=== PATIENT | female | born 1985 | race Caucasian/White ===

== ENCOUNTER 2017-06-13 14:35 | Emergency (ER) | payer OTHER ==
[2017-06-13 14:56] VITALS: BP 126/74
--- NOTE | 2017-06-13 15:48 | UC ---
Abdominal Pain Female HPI - HPI Summary HPI Summary: Pt presents with RLQ pain X 1-2 days. Pt reports that she has a history of PCOS , hypothyroidism, constipation and ovarian cysts. - History of Current Complaint Chief Complaint: UCAbdominalPain Stated Complaint: LOWER ABDOMINAL/PELVIC PAIN Time Seen by Provider: 06/13/17 15:30 Hx Obtained From: Patient Hx Last Menstrual Period: "Haven't had period in over 1 year". Has OBGYN consult planned. ?: No Onset/Duration: Gradual Onset, Lasting Days - 2, Still Present Timing: Intermittent Episodes Lasting: Severity Initially: Mild Severity Currently: Mild Location: Discrete At: RLQ Radiates: No Character: Cramping, Dull, Sharp Aggravating Factor(s): Nothing Alleviating Factor(s): Nothing Associated Signs and Symptoms: Positive: Negative Simlar Episode/Dx as:: ovarian cyst, constipation - Risk Factors Ectopic Risk Factor: Negative Ovarian Torsion Risk Factor: Ovarian Cysts/Tumors Allergies/Adverse Reactions: Allergies Allergy/AdvReac Type Severity Reaction Status Date / Time No Known Allergies Allergy Verified 06/13/17 14:44 Home Medications: Home Medications Acetaminophen TAB* [Tylenol TAB*] 1,000 mg BID PRN 06/13/17 [History Confirmed 06/13/17] PMH/Surg Hx/FS Hx/Imm Hx Previously Healthy: Yes - Surgical History Surgical History: Yes Surgery Procedure, Year, and Place: Cholecystectomy, ~2009, [facility]. Back surgery~ Nov - Family History Known Family History: Positive: Hypertension - Social History Occupation: Employed Full-time Lives: With Family Alcohol Use: Rare Substance Use Type: None Smoking Status (MU): Never Smoked Tobacco Have You Smoked in the Last Year: No - Immunization History Most Recent Influenza Vaccination: NONE 2015 Most Recent Tetanus Shot: UTD Most Recent Pneumonia Vaccination: N/A Review of Systems Constitutional: Negative Skin: Negative Eyes: Negative ENT: Negative Respiratory: Negative Cardiovascular: Negative Gastrointestinal: Abdominal Pain, Other - constipation Genitourinary: Negative Motor: Negative Neurovascular: Negative Musculoskeletal: Negative Neurological: Negative Psychological: Negative All Other Systems Reviewed And Are Negative: Yes Physical Exam Triage Information Reviewed: Yes Appearance: Well-Appearing Vital Signs: Initial Vital Signs Temp 98 F 06/13/17 14:46 Pulse 87 06/13/17 14:46 Resp 16 06/13/17 14:46 BP 126/74 06/13/17 14:46 Pulse Ox 100 06/13/17 14:46 Vital Signs Reviewed: Yes Eye Exam: Normal ENT Exam: Normal Neck exam: Normal Respiratory Exam: Normal Cardiovascular Exam: Normal Abdomen Description: Positive: Other: - generalized tenderness, RLQ Musculoskeletal Exam: Normal Neurological Exam: Normal Psychological Exam: Normal Skin Exam: Normal Abd Pain Female Course/Dx - Course Course Of Treatment: I discussed with the pt the s/sx of appendicitis, ovarian cyst and recommended the use of a stool softener to help manage her chronic constipation. Pt verbalized agreement and and agreed to plan of care - Differential Dx/Diagnosis Differential Diagnosis: Appendicitis, Constipation, Ovarian Cyst Provider Diagnoses: Abdominal pain. Appendicitis-? Constipation-? ovarian cyst-? Discharge - Discharge Plan Condition: Stable Disposition: HOME Patient Education Materials: Acute Abdominal Pain (ED) Referrals: Avery Rosas DC [Primary Care Provider] - If Needed
== END 2017-06-13 15:55 | disposition home or self-care (01) ==
LOC: UCCORT 14:35
DX: R10.31 Right lower quadrant pain (principal)
CPT/HCPCS: 81003; 84702; 99211; G0463

== ENCOUNTER 2017-10-04 18:49 | Emergency (ER) | payer OTHER ==
[2017-10-04 20:33] VITALS: BP 127/75
--- NOTE | 2017-10-04 20:34 | UC ---
Upper Extremity HPI - HPI Summary HPI Summary: 31 year old female presents with right elbow pain/swelling - History of Current Complaint Chief Complaint: UCUpperExtremity Stated Complaint: RT ELBOW Time Seen by Provider: 10/04/17 20:34 Hx Obtained From: Patient Hx Last Menstrual Period: irreg Onset/Duration: Sudden Onset Severity Initially: Moderate Severity Currently: Moderate Pain Scale Used: 0-10 Numeric - 8 Character: Sharp Aggravating Factor(s): Movement, Flexion, Extension Alleviating Factor(s): Elevation Associated Signs And Symptoms: Positive: Swelling, Redness - Allergies/Home Medications Allergies/Adverse Reactions: Allergies Allergy/AdvReac Type Severity Reaction Status Date / Time No Known Allergies Allergy Verified 10/04/17 20:33 Home Medications: Home Medications Levothyroxine TAB* [Synthroid TAB*] 75 mcg PO 0800 10/04/17 [History Confirmed 10/04/17] metFORMIN* [Glucophage 500 MG TAB *] 500 mg PO BID 10/04/17 [History Confirmed 10/04/17] PMH/Surg Hx/FS Hx/Imm Hx - Surgical History Surgical History: Yes Surgery Procedure, Year, and Place: Cholecystectomy, ~2009, [facility]. Back surgery~ Nov - Family History Known Family History: Positive: Hypertension - Social History Alcohol Use: Rare Substance Use Type: None Smoking Status (MU): Never Smoked Tobacco Have You Smoked in the Last Year: No - Immunization History Most Recent Influenza Vaccination: NONE 2015 Most Recent Tetanus Shot: UTD Most Recent Pneumonia Vaccination: N/A Review of Systems Constitutional: Negative Skin: Negative Eyes: Negative ENT: Negative Respiratory: Negative Cardiovascular: Negative Gastrointestinal: Negative Genitourinary: Negative Motor: Negative Neurovascular: Negative Musculoskeletal: Myalgia, Other: - right elbow swelling/redness Neurological: Negative Psychological: Negative All Other Systems Reviewed And Are Negative: Yes Physical Exam Triage Information Reviewed: Yes Vital Signs: Initial Vital Signs Temp 36.9 C 10/04/17 20:30 Pulse 82 10/04/17 20:30 Resp 14 10/04/17 20:30 BP 127/75 10/04/17 20:30 Pulse Ox 100 10/04/17 20:30 Vital Signs Reviewed: Yes Eye Exam: Normal ENT Exam: Normal Dental Exam: Normal Neck exam: Normal Neck: Positive: 1 Respiratory Exam: Normal Cardiovascular Exam: Normal Abdominal Exam: Normal Musculoskeletal: Positive: Other: - right elbow swelling/erythema Neurological Exam: Normal Psychological Exam: Normal Skin Exam: Normal Upper Extremity Course/Dx - Differential Dx/Diagnosis Provider Diagnoses: right elbow swelling/erythema Discharge - Discharge Plan Condition: Stable Disposition: HOME Prescriptions: Ibuprofen TAB* [Motrin TAB* 800 MG] 800 mg PO Q6H #30 tab Patient Education Materials: Elbow Sprain (ED) Referrals: Stephen Davidson MD [Medical Doctor] - Avery Rosas DC [Doctor of Chiropractic] -
--- NOTE | 2017-10-04 21:48 | RAD ---
INDICATION: RIGHT elbow pain following injury today. COMPARISON: No relevant prior exams available on the [facility] PACS for comparison. TECHNIQUE: AP, lateral, and oblique views RIGHT elbow. REPORT AND IMPRESSION: Normal articular alignment. Negative for fracture. Negative for joint effusion. Soft tissue swelling most prominent over the medial visualized upper arm and dorsal aspect of the elbow and proximal forearm.
[2017-10-04] MEDS ORDERED: Ibuprofen TAB* 400 MG PO ONE (21:51)
== END 2017-10-04 22:00 | disposition home or self-care (01) ==
LOC: UCCORT 18:49
DX: M25.521 Pain in right elbow (principal); M79.89 Other specified soft tissue disorders; L53.9 Erythematous condition, unspecified; Z32.02 Encounter for pregnancy test, result negative; Z90.49 Acquired absence of other specified parts of digestive tract
CPT/HCPCS: 84702; 99212; A9270-GY; G0463

== ENCOUNTER 2017-10-29 15:55 | Emergency (ER) | payer OTHER ==
[2017-10-29 17:06] VITALS: BP 121/75
--- NOTE | 2017-10-29 17:30 | UC ---
Throat Pain/Nasal Jonah HPI - HPI Summary HPI Summary: 31 yo female with sinus pressure and pain x 1 week post nasal drip and cough no f/c no ear ache no CP or SOB fatigued - History of Current Complaint Chief Complaint: UCRespiratory Stated Complaint: SINUS/CONGESTION Time Seen by Provider: 10/29/17 16:56 Hx Obtained From: Patient Hx Last Menstrual Period: DOES NOT HAVE REGULAR PERIODS. HAS PCOS Onset/Duration: Gradual Onset, Lasting Weeks - 1 Severity: Moderate Pain Intensity: 4 Pain Scale Used: 0-10 Numeric Cough: Nonproductive Associated Signs & Symptoms: Positive: Sinus Discomfort, Nasal Discharge - Epiglottits Risk Factors Epiglottis Risk Factors: Negative - Allergies/Home Medications Allergies/Adverse Reactions: Allergies Allergy/AdvReac Type Severity Reaction Status Date / Time No Known Allergies Allergy Verified 10/29/17 16:58 Home Medications: Home Medications Ibuprofen TAB* [Motrin TAB* 800 MG] 800 mg PO Q6H PRN 10/29/17 [History Confirmed 10/29/17] PMH/Surg Hx/FS Hx/Imm Hx Previously Healthy: Yes Endocrine History: Hypothyroidism Respiratory History: Asthma - childhood - Surgical History Surgical History: Yes Surgery Procedure, Year, and Place: Cholecystectomy, ~. Back surgery~ Nov - Family History Known Family History: Positive: Hypertension, Diabetes - Social History Alcohol Use: Rare Substance Use Type: None Smoking Status (MU): Never Smoked Tobacco Have You Smoked in the Last Year: No - Immunization History Most Recent Influenza Vaccination: NOT IN 2016 Most Recent Tetanus Shot: UTD Most Recent Pneumonia Vaccination: N/A Review of Systems Constitutional: Fatigue Skin: Negative Eyes: Negative ENT: Nasal Discharge, Sinus Congestion, Sinus Pain/Tenderness Respiratory: Cough Cardiovascular: Negative Gastrointestinal: Negative Genitourinary: Negative Motor: Negative Neurovascular: Negative Musculoskeletal: Negative Neurological: Negative Psychological: Negative Is Patient Immunocompromised?: No All Other Systems Reviewed And Are Negative: Yes Physical Exam Triage Information Reviewed: Yes Appearance: Well-Appearing, No Pain Distress, Well-Nourished Vital Signs: Initial Vital Signs Temp 98.8 F 10/29/17 16:59 Pulse 92 10/29/17 16:59 Resp 18 10/29/17 16:59 BP 121/75 10/29/17 16:59 Pulse Ox 100 10/29/17 16:59 Vital Signs Reviewed: Yes Eyes: Positive: Conjunctiva Clear ENT: Positive: Hearing grossly normal, Nasal congestion, Nasal drainage, TMs normal, Sinus tenderness - bilat max, Uvula midline Neck: Positive: Supple, Nontender, No Lymphadenopathy Respiratory: Positive: Lungs clear, Normal breath sounds, No respiratory distress, No accessory muscle use Cardiovascular: Positive: RRR, No Murmur, Pulses Normal Musculoskeletal: Positive: ROM Intact, No Edema Neurological: Positive: Alert Psychological Exam: Normal Skin Exam: Normal Throat Pain/Nasal Course/Dx - Differential Dx/Diagnosis Provider Diagnoses: acute sinusitis Discharge - Discharge Plan Condition: Stable Disposition: HOME Prescriptions: Amoxicillin PO (*) [Amoxicillin 875 MG (*)] 875 mg PO BID #20 tab Patient Education Materials: Sinusitis (ED) Referrals: Non Staff,Doctor [Primary Care Provider] - 5 Days (if not better)
== END 2017-10-29 17:30 | disposition home or self-care (01) ==
LOC: UCCORT 15:55
DX: J01.90 Acute sinusitis, unspecified (principal); E03.9 Hypothyroidism, unspecified; J45.909 Unspecified asthma, uncomplicated; Z90.49 Acquired absence of other specified parts of digestive tract
CPT/HCPCS: 99212; G0463

== ENCOUNTER 2018-05-19 12:32 | Emergency (ER) | payer OTHER ==
--- NOTE | 2018-05-19 13:45 | UC ---
Throat Pain/Nasal Jonah HPI - History of Current Complaint Stated Complaint: SINUS CONGESTION, COUGH Time Seen by Provider: 05/19/18 13:44 Hx Last Menstrual Period: DOES NOT HAVE REGULAR PERIODS. HAS PCOS - Allergies/Home Medications Allergies/Adverse Reactions: Allergies Allergy/AdvReac Type Severity Reaction Status Date / Time No Known Allergies Allergy Verified 10/29/17 16:58 PMH/Surg Hx/FS Hx/Imm Hx - Surgical History Surgical History: Yes Surgery Procedure, Year, and Place: Cholecystectomy, ~2009, [facility]. Back surgery~ Nov - Family History Known Family History: Positive: Hypertension, Diabetes - Social History Alcohol Use: Rare Substance Use Type: None Smoking Status (MU): Never Smoked Tobacco Have You Smoked in the Last Year: No - Immunization History Most Recent Influenza Vaccination: NOT IN 2017 Most Recent Tetanus Shot: UTD Most Recent Pneumonia Vaccination: N/A Discharge - Discharge Plan Referrals: Non Staff,Doctor [Primary Care Provider] -
[2018-05-19 13:58] VITALS: BP 122/75
--- NOTE | 2018-05-19 14:09 | UC ---
Throat Pain/Nasal Jonah HPI - HPI Summary HPI Summary: 32 F with sinus complaint. sinus pain/pressure x 1 month. Pt did take zyrtec to aid in sx but no relief noted. going on vacation and wants to maake sure she is not going to get worsened or that she has meds in case she does. no fever. - History of Current Complaint Chief Complaint: UCGeneralIllness Stated Complaint: SINUS CONGESTION, COUGH Time Seen by Provider: 05/19/18 13:44 Hx Obtained From: Patient Hx Last Menstrual Period: abnormal - POCS Onset/Duration: Gradual Onset Severity: Mild Pain Intensity: 0 Cough: Productive Associated Signs & Symptoms: Positive: Sinus Discomfort, Nasal Discharge - Allergies/Home Medications Allergies/Adverse Reactions: Allergies Allergy/AdvReac Type Severity Reaction Status Date / Time No Known Allergies Allergy Verified 10/29/17 16:58 PMH/Surg Hx/FS Hx/Imm Hx Previously Healthy: Yes - Surgical History Surgical History: Yes Surgery Procedure, Year, and Place: Cholecystectomy, ~2009, [facility]. Back surgery~ Nov - Family History Known Family History: Positive: Hypertension, Diabetes - Social History Occupation: Employed Full-time Lives: With Family Alcohol Use: Rare Substance Use Type: None Smoking Status (MU): Never Smoked Tobacco Have You Smoked in the Last Year: No - Immunization History Most Recent Influenza Vaccination: NOT IN 2017 Most Recent Tetanus Shot: UTD Most Recent Pneumonia Vaccination: N/A Review of Systems ENT: Nasal Discharge, Sinus Congestion, Sinus Pain/Tenderness Is Patient Immunocompromised?: No All Other Systems Reviewed And Are Negative: Yes Physical Exam Triage Information Reviewed: Yes Appearance: Well-Appearing, No Pain Distress, Well-Nourished Vital Signs: Initial Vital Signs Temp 98.6 F 05/19/18 13:54 Pulse 95 05/19/18 13:54 Resp 18 05/19/18 13:54 BP 122/75 05/19/18 13:54 Pulse Ox 100 05/19/18 13:54 Vital Signs Reviewed: Yes Eye Exam: Normal ENT Exam: Normal ENT: Positive: Sinus tenderness - maxillary b/l Dental Exam: Normal Neck exam: Normal Neck: Positive: 1 Respiratory Exam: Normal Cardiovascular Exam: Normal Musculoskeletal Exam: Normal Neurological Exam: Normal Psychological Exam: Normal Skin Exam: Normal Throat Pain/Nasal Course/Dx - Course Course Of Treatment: supportive treatement for 3-4 days and if sx worsen then start augmentin and aware of SE of that med . - Differential Dx/Diagnosis Differential Diagnosis/HQI/PQRI: Pharyngitis, Sinusitis, Tonsillitis Provider Diagnoses: sinusitis Discharge - Sign-Out/Discharge Documenting (check all that apply): Discharge/Admit/Transfer - Discharge Plan Condition: Good Disposition: HOME Prescriptions: Amoxicillin/Clavulanate TAB* [Augmentin TAB 875*] 875 mg PO BID #20 tab Patient Education Materials: Sinusitis (ED) Referrals: Non Staff,Doctor [Primary Care Provider] - 4 Days (if needed ) Additional Instructions: As we discussed we will treat as viral sinusitis and advise zyrtec and flonase in the AM and in the PM the benadryl and Netti pot and if your symptoms worsen in the next 3-4 days then at that time start your antibiotics. - Billing Disposition and Condition Condition: GOOD Disposition: Home
== END 2018-05-19 14:20 | disposition home or self-care (01) ==
LOC: UCCORT 12:32
DX: J32.9 Chronic sinusitis, unspecified (principal)
CPT/HCPCS: 99212; G0463

== ENCOUNTER 2019-04-23 09:04 | Emergency (ER) | payer OTHER ==
[2019-04-23 10:22] VITALS: BP 123/80
--- NOTE | 2019-04-23 10:48 | UC ---
Ear Complaint HPI - HPI Summary HPI Summary: 33 yo female with concerns that a bug is in her ear [place] an insect buzzing in or near her ear about 4 AM no pain or foreign body sensation recent URI - History of Current Complaint Chief Complaint: UCEar Stated Complaint: EAR CONCERN Time Seen by Provider: 04/23/19 10:31 Hx Obtained From: Patient Hx Last Menstrual Period: September Onset/Duration: Sudden Onset, Gradual Onset Severity Currently: None Pain Intensity: 0 Pain Scale Used: 0-10 Numeric Aggravating Factors: FB Alleviating Factors: OTC Meds - Allergies/Home Medications Allergies/Adverse Reactions: Allergies Allergy/AdvReac Type Severity Reaction Status Date / Time No Known Allergies Allergy Verified 04/23/19 10:17 PMH/Surg Hx/FS Hx/Imm Hx Previously Healthy: Yes - Surgical History Surgical History: Yes Surgery Procedure, Year, and Place: Cholecystectomy, ~2009, [facility]. Back surgery~ Nov - Family History Known Family History: Positive: Hypertension, Diabetes - Social History Alcohol Use: Rare Substance Use Type: None Smoking Status (MU): Never Smoked Tobacco Have You Smoked in the Last Year: No - Immunization History Most Recent Influenza Vaccination: NOT IN 2016 Most Recent Tetanus Shot: UTD Most Recent Pneumonia Vaccination: N/A Review of Systems All Other Systems Reviewed And Are Negative: Yes Constitutional: Positive: Negative Skin: Positive: Negative Eyes: Positive: Negative ENT: Positive: Other - ears popping Respiratory: Positive: Negative Cardiovascular: Positive: Negative Gastrointestinal: Positive: Negative Genitourinary: Positive: Negative Motor: Positive: Negative Neurovascular: Positive: Negative Musculoskeletal: Positive: Negative Neurological: Positive: Negative Psychological: Positive: Negative Physical Exam Triage Information Reviewed: Yes Appearance: Well-Appearing, No Pain Distress, Well-Nourished Vital Signs: Initial Vital Signs Temp 98.2 F 04/23/19 10:18 Pulse 82 04/23/19 10:18 Resp 15 04/23/19 10:18 BP 123/80 04/23/19 10:18 Pulse Ox 100 04/23/19 10:18 Vital Signs Reviewed: Yes Eyes: Positive: Conjunctiva Clear ENT: Positive: Hearing grossly normal. Negative: Nasal congestion, Nasal drainage, Trismus, Muffled voice, Dental tenderness Neck: Positive: Supple, Nontender, No Lymphadenopathy Respiratory: Positive: Lungs clear, Normal breath sounds, No respiratory distress, No accessory muscle use Cardiovascular: Positive: RRR, No Murmur Bowel Sounds: Positive: Present Musculoskeletal: Positive: ROM Intact, No Edema Neurological: Positive: Alert Psychological Exam: Normal Skin Exam: Normal Ear Complaint Course/Dx - Differential Dx/Diagnosis Provider Diagnosis: Dysfunction of both eustachian tubes Discharge - Sign-Out/Discharge Documenting (check all that apply): Patient Departure All imaging exams completed and their final reports reviewed: No Studies - Discharge Plan Condition: Stable Disposition: HOME Patient Education Materials: Serous Otitis Media (ED) Referrals: No Primary Care Phys,NOPCP [Primary Care Provider] - Additional Instructions: I saw no foreign body /bug in your left ear It does look like the pressure has not been equalizing in your middle ear I think it will clear up with time recheck for new or worsening symptoms or if not better in 2 weeks - Billing Disposition and Condition Condition: STABLE Disposition: Home
== END 2019-04-23 10:55 | disposition home or self-care (01) ==
LOC: UCCORT 09:04
DX: H69.93 Unspecified Eustachian tube disorder, bilateral (principal)
CPT/HCPCS: 99211; G0463

== ENCOUNTER 2019-12-24 09:25 | Emergency (ER) | payer OTHER ==
[2019-12-24 10:36] VITALS: BP 130/72
--- NOTE | 2019-12-24 10:53 | UC ---
Ear Complaint HPI - HPI Summary HPI Summary: Pt presents with c/o bilateral ear fullness, aching X 2 weeks. Denies fever, chills, and URI symptoms. - History of Current Complaint Chief Complaint: UCEar Stated Complaint: BILATERAL EAR PAIN Time Seen by Provider: 12/24/19 10:39 Hx Obtained From: Patient Hx Last Menstrual Period: 12/02/2019 ?: No Onset/Duration: Gradual Onset, Lasting Days - 9 Severity Initially: Mild Severity Currently: Mild Pain Intensity: 2 Associated Signs/Symptoms: Positive: Hearing Loss - Allergies/Home Medications Allergies/Adverse Reactions: Allergies Allergy/AdvReac Type Severity Reaction Status Date / Time No Known Allergies Allergy Verified 12/24/19 10:32 Home Medications: Home Medications Levothyroxine TAB* [Synthroid TAB*] 50 mcg PO DAILY 12/24/19 [History Confirmed 12/24/19] PMH/Surg Hx/FS Hx/Imm Hx Previously Healthy: Yes - Surgical History Surgical History: Yes Surgery Procedure, Year, and Place: Cholecystectomy, ~2009, [facility]. Back surgery~ Nov - Family History Known Family History: Positive: Hypertension, Diabetes - Social History Occupation: Employed Full-time Lives: With Family Alcohol Use: Rare Substance Use Type: None Smoking Status (MU): Never Smoked Tobacco Have You Smoked in the Last Year: No - Immunization History Most Recent Influenza Vaccination: NOT IN 2017 Most Recent Tetanus Shot: UTD Most Recent Pneumonia Vaccination: N/A Vaccination Up to Date: Yes Review of Systems All Other Systems Reviewed And Are Negative: Yes Constitutional: Positive: Negative Skin: Positive: Negative Eyes: Positive: Negative ENT: Positive: Ear Ache Respiratory: Positive: Negative Cardiovascular: Positive: Negative Gastrointestinal: Positive: Negative Genitourinary: Positive: Negative Motor: Positive: Negative Neurovascular: Positive: Negative Musculoskeletal: Positive: Negative Neurological: Positive: Negative Psychological: Positive: Negative Is Patient Immunocompromised?: No Physical Exam Triage Information Reviewed: Yes Appearance: Well-Appearing Vital Signs: Initial Vital Signs Temp 97.6 F 12/24/19 10:30 Pulse 78 12/24/19 10:30 Resp 16 12/24/19 10:30 BP 130/72 12/24/19 10:30 Pulse Ox 100 12/24/19 10:30 Vital Signs Reviewed: Yes Eye Exam: Normal ENT: Positive: TM bulging - bilateral Dental Exam: Normal Neck exam: Normal Respiratory Exam: Normal Cardiovascular Exam: Normal Musculoskeletal Exam: Normal Neurological Exam: Normal Psychological Exam: Normal Skin Exam: Normal Ear Complaint Course/Dx - Differential Dx/Diagnosis Differential Diagnosis/HQI/PQRI: Cerumen Impaction, Otitis Externa, Otitis Media , URI Provider Diagnosis: Acute serous otitis media of both ears Discharge ED - Sign-Out/Discharge Documenting (check all that apply): Patient Departure All imaging exams completed and their final reports reviewed: No Studies - Discharge Plan Condition: Stable Disposition: HOME Prescriptions: Guaifenesin/Pseudoephedrne HCl [Mucinex D ER 600-60 mg Tablet] 1 each PO Q12H # 14 tab.er.12h Oxymetazoline 0.05% NASAL SPR* [Afrin 0.05% NASAL SPRAY*] 1 spray NASAL Q12H 7 Days #1 btl predniSONE 10 mg TAB [Deltasone 10 MG TAB*] 30 mg PO DAILY #18 tab Patient Education Materials: Serous Otitis Media (ED) Referrals: Ed VEGA,Popeye [Primary Care Provider] - If Needed - Billing Disposition and Condition Condition: STABLE Disposition: Home - Attestation Statements Provider Attestation: This patient was not seen by me. I was available for consult. Chart reviewed. KELLY
== END 2019-12-24 11:00 | disposition home or self-care (01) ==
LOC: UCCORT 09:25
DX: H65.03 Acute serous otitis media, bilateral (principal)
CPT/HCPCS: 99212; G0463